=== PATIENT | male | born 1940 | race Caucasian/White ===

== ENCOUNTER 2017-11-17 14:40 | Observation (INO) | payer OTHER, MEDICARE ==
[~2017-11-17] VITALS: Ht 177.8 cm; Wt 93.0 kg
--- NOTE | 2017-11-17 15:57 | RADIOLOGY REPORT ---
EXAMINATION: XR CHEST CLINICAL INFORMATION: Dizziness. Rule out cardiopulmonary process. COMPARISON: None TECHNIQUE: 2 views of the chest were obtained. FINDINGS: The cardiomediastinal silhouette is within normal limits in size. Calcification of the aortic arch is seen. Lungs bilaterally are symmetrically mildly hyperinflated and demonstrate mild bibasilar linear reticular atelectasis. No focal consolidation, effusion or pneumothorax is seen. Bony structures are unremarkable. IMPRESSION: Findings are suggestive of obstructive lung disease with mild bibasilar subsegmental atelectasis. Close clinical correlation is requested. No focal pneumonia.
[2017-11-17 16:32] LABS: ABSOLUTE BASOPHIL COUNT 0 /CUMM (0.0-0.2); ABSOLUTE EOSINOPHIL COUNT 0.2 /CUMM (0.0-0.7); ABSOLUTE GRANULOCYTE CT 4.8 /CUMM (1.4-6.5); ABSOLUTE LYMPH COUNT 1.3 /CUMM (1.2-3.4); ABSOLUTE MONOCYTE COUNT 0.8 /CUMM (0.10-0.60); BASOPHIL % 0.5 % (0.0-2.0); EOSINOPHIL % 3.3 % (0-5); GRANULOCYTE % 67.1 % (42.2-75.2); HEMATOCRIT 41.2 % (42-52); MEAN CORPUSCULAR HGB 28.4 PG (27.0-31.0); MEAN CORPUSCULAR HGB CONC 33.2 G/DL (33.0-37.0); MEAN CORPUSCULAR VOLUME 85.8 FL (80.0-94.0); PLATELET COUNT 304 /CUMM (130-400); WHITE BLOOD CELL COUNT 7.1 /CUMM (4.8-10.8)
--- NOTE | 2017-11-17 20:03 | ED CARDIAC/CP/PALPITATIONS ---
History of Present Illness General Chief Complaint: General Adult Stated Complaint: PT IS SWEATING FOR AWHILE AND DIZZY Source: patient, family Exam Limitations: no limitations Vital Signs & Intake/Output Vital Signs & Intake/Output Vital Signs Date Time Temp Pulse Resp B/P B/P Pulse O2 O2 Flow FiO2 Mean Ox Delivery Rate 11/17 2230 98.7 85 18 134/80 96 Room Air 11/17 2118 97.5 61 18 142/88 98 11/17 1850 98.3 67 20 153/90 96 Room Air 11/17 1457 98.5 88 20 157/90 98 Room Air ED Intake and Output 11/18 0000 11/17 1200 Intake Total 22 Output Total Balance 22 Intake, Oral 22 Patient 205 lb Weight Weight Reported by Patient Measurement Method Allergies Coded Allergies: codeine (UNKNOWN PER PT 11/17/17) Reconcile Medications Ascorbate Calcium (Vitamin C) (Unknown Strength) TABLET (Unknown Dose) PO DAILY SUPPLEMENT (Reported) Aspirin (Ecotrin*) 81 MG TABLET.DR 1 TAB PO DAILY HEART/BLOOD (Reported) Cholecalciferol (Vitamin D3) (Vitamin D) (Unknown Strength) CAPSULE (Unknown Dose) PO DAILY SUPPLEMENT (Reported) [place]-3/Dha/Epa/Fish Oil (Fish Oil 1,000 MG Softgel) (Unknown Strength) CAPSULE (Unknown Dose) PO DAILY SUPPLEMENT (Reported) Pyridoxine HCl (Vitamin B-6) (Unknown Strength) TABLET (Unknown Dose) PO DAILY SUPPLEMENT (Reported) Triage Note: PT TO ED C/O SUDDEN ONSET OF SWEATING, LIGHTHEADED AND WEAKNESS AROUND 1100 TODAY. DENIES PAIN. DENIES C/P. STATES FELT SOB WITH WALKING INTO ED TODAY. RA SATS 98%. STATES "I FEEL TIRED". EKG DONE. Triage Nurses Notes Reviewed? yes HPI: 77-year-old male with no past medical history presenting with sudden onset of profuse sweating today while applying a license plate to his vehicle. Patient states he went into the house, sat down and drank a glass of water at which time he felt better. Patient reports a lack of energy since this episode which occurred at approximately 1230 this afternoon. Of note patient states he had a similar episode 2 weeks ago with diaphoresis while working on putting a grill together at his home. He states he had 2-3 days of decreased energy after that time. Today he notes upon walking from the parking lot to the emergency department he became increasingly short of breath. Patient recently moved back to the area. He has an appointment to establish care with Dr. Smith. Of note in 2005 patient had a stress test which was negative. This was done after the patient was on a cross-country flight and experienced left arm numbness. Per and patient he is extremely active and has a regular exercise routine of 2-3 miles per day. This acute dyspnea on exertion is significant. Patient denies any chest pain, abdominal pain, numbness or tingling to extremities, fever, chills, headache, dizziness, syncope. (Xiao Garcia MD) Past History Travel History Traveled to [place] past 21 day No Medical History Any Pertinent Medical History? none Surgical History Surgical History: none Psychosocial History Who do you live with Spouse Services at Home None What is your primary language Samoan Tobacco Use: Quit >30 days ago Daily Tobacco Use Amount/Type: =< 4 Cigarettes daily (quit 50 years ago; 10yr pck hx) ETOH Use: denies use (2-3 beers/week), occasional use Illicit Drug Use: denies illicit drug use Family History Hx Contributory? No (Xiao Garcia MD) Review of Systems Review of Systems Constitutional: Reports: diaphoresis, malaise. Denies: chills, fever, weakness. EENTM: Reports: no symptoms. Respiratory: Reports: short of breath. Denies: cough, orthopnea, sputum production. Cardiovascular: Reports: no symptoms. Denies: chest pain, palpitations, peripheral edema, syncope. GI: Reports: no symptoms. Genitourinary: Reports: no symptoms. Musculoskeletal: Reports: no symptoms. Skin: Reports: no symptoms. Neurological/Psychological: Reports: no symptoms. (Xiao Garcia MD) Physical Exam Physical Exam General Appearance: well developed/nourished, no apparent distress, alert, awake , comfortable Head: atraumatic, normal appearance Eyes: Bilateral: normal appearance. Neck: normal inspection, supple Respiratory: normal breath sounds, chest non-tender, no respiratory distress Cardiovascular: regular rate/rhythm, normal peripheral pulses Peripheral Pulses: 2+ radial (R), 2+ radial (L) Gastrointestinal: normal bowel sounds, soft, non-tender Extremities: normal inspection, normal capillary refill, normal range of motion Neurologic/Psych: no motor/sensory deficits, awake, alert, oriented x 3, confectionery cooker II- XII nml as tested Skin: intact, normal color, warm/dry Core Measures ACS in differential dx? Yes CVA/TIA Diagnosis No Sepsis Present: No Sepsis Focused Exam Completed? No (Jose GUTIERREZ,Xiao) Progress Differential Diagnosis: unstable angina Plan of Care: Orders Procedure Date/time Status Heart Healthy Diet 11/18 B Active MAGNESIUM 11/18 06 Active LIPID PANEL 11/18 0600 Active CBC WITHOUT DIFFERENTIAL 11/18 06 Active BASIC ELECTROLYTES PLUS BUN&CR 11/18 06 Active ECHOCARDIOGRAM 11/18 0600 Active TROPONIN LEVEL 11/18 0230 Active EKG 11/18 0230 Active MISTAKE 11/18 UNK Active Vital Signs 11/17 2246 Active Teach/Educate 11/17 224 Active Pain Treatment and Response 11/17 224 Active Nutritional Intake, Monitor 11/17 2245 Active Isolation 11/17 224 Active Intake & Output 11/17 2245 Active Patient Care Conference 11/17 2245 Active Activity/Ambulation 11/17 224 Active Pathway - chart 11/18 2143 Active Pathway - chart 11/17 214 Active Patient Data 11/17 2143 Active Code Status 11/17 2143 Active Intake & Output 11/17 2058 Complete Patient Data 11/17 195 Active Saline Lock 11/17 194 Active Misc Message 11/17 194 Active ED Holding Orders 11/17 1946 Active Vital Signs 11/17 1946 Active Code Status 11/[address] in observation 11/17 1945 Active TROPONIN LEVEL 11/17 1908 Complete EKG 11/17 1908 Active THYROID STIMULATING HORMONE 11/17 1501 Complete TROPONIN LEVEL 11/17 1501 Complete COMPREHENSIVE METABOLIC PANEL 11/17 1501 Complete CBC WITHOUT DIFFERENTIAL 11/17 1501 Complete EKG 11/17 1443 Active Pathway - chart 11/17 UNK Active House Staff 11/17 UNK Active Weight 11/17 UNK Active VTE Mechanical Prophylaxis 11/17 UNK Active Telemetry/Merchandise Complaint Adjuster 11/17 UNK Active Intake & Output 11/17 UNK Complete Current Medications Sig/Pavel Start time Last Medication Dose Stop Time Status Admin Aspirin 81 MG DAILY 11/18 09 AC (Aspirin) Enoxaparin Sodium 40 MG DAILY 11/18 09 AC (Lovenox) Multivitamins 1 TAB DAILY 11/18 09 AC (Theragran Vitamins) Acetaminophen 650 MG Q6 PRN 11/17 2144 AC (Tylenol) Acetaminophen 1,000 MG Q6P PRN 11/17 2144 AC (Ofirmev) Oxycodone HCl 5 MG Q6 PRN 11/17 2144 AC (Roxicodone) Laboratory Tests 11/18/17 0300: Troponin I Pending 11/17/172023: Troponin I < 0.01 11/17/17 1623: Anion Gap 10, Estimated GFR > 60, BUN/Creatinine Ratio 17.5, Glucose 89, Calcium 8.9, Total Bilirubin 0.4, AST 34, ALT 40, Alkaline Phosphatase 81, Troponin I < 0.01, Total Protein 7.9, Albumin 4.4, Globulin 3.5, Albumin/Globulin Ratio 1.3, TSH 1.960, CBC w Diff NO MAN DIFF REQ, RBC 4.80, MCV 85.8, MCH 28.4, MCHC 33.2, RDW 14.0, MPV 9.0, Gran % 67.1, Lymphocytes % 18.5 L, Monocytes % 10.6 H, Eosinophils % 3.3, Basophils % 0.5, Absolute Granulocytes 4.8, Absolute Lymphocytes 1.3, Absolute Monocytes 0.8 H, Absolute Eosinophils 0.2, Absolute Basophils 0 Initial ED EKG: sinus arrhythmia Comments: 77 year old male with no PMH presenting with diaphoresis, decreased energy, LUO. Initial work up in ED normal troponin; ekg showing sinus arrhythmia; no signs of acute infectious process; electrolytes WNL; normal TSH. High suspicion for unstable angina. Patient to be placed on observation in Telemetry for further work up and monitoring. Repeat troponin ordered. Will need Cardiology evaluation in AM. (Jose GUTIERREZ,Xiao) CXR Impression: PATIENT: DEBI DONALDSON PRESENT AGE: 77 PATIENT ACCOUNT NO: [id number] : 40 LOCATION: [facility] ORDERING PHYSICIAN: Leena HUSTON SERVICE DATE: 11/17/17 EXAM TYPE: RAD - XRY-CHEST XRAY, TWO VIEWS EXAMINATION: XR CHEST CLINICAL INFORMATION: Dizziness. Rule out cardiopulmonary process. COMPARISON: None TECHNIQUE: 2 views of the chest were obtained. FINDINGS: The cardiomediastinal silhouette is within normal limits in size. Calcification of the aortic arch is seen. Lungs bilaterally are symmetrically mildly hyperinflated and demonstrate mild bibasilar linear reticular atelectasis. No focal consolidation, effusion or pneumothorax is seen. Bony structures are unremarkable. IMPRESSION: Findings are suggestive of obstructive lung disease with mild bibasilar subsegmental atelectasis. Close clinical correlation is requested. No focal pneumonia. DICTATED BY: Sarah Rodriguez MD DATE/TIME DICTATED:11/17/171550 BACKFILLER:LELE DATE/ TIME TRANSCRIBED:11/17/171550 CONFIDENTIAL, DO NOT COPY WITHOUT APPROPRIATE AUTHORIZATION. <Electronically signed in Other Vendor System> SIGNED BY: Sarah Rodriguez MD 11/17/17 1764 (Mendoza Vail MD) Departure Departure Disposition: STILL A PATIENT Condition: Stable Clinical Impression Primary Impression: Unstable angina Referrals: Jere Smith MD (PCP/Family) Departure Forms: Customer Survey General Discharge Information (Xiao Garcia MD) Admission Note Spoke With: Patricio Santo MD Documentation of Exam: Documentation of any treatments & extenuating circumstances including Concerns Regarding Discharge (functional status, medication knowledge or non-compliance, living conditions, etc.) that warrant an admission rather than observation: pt with signs and symptoms concerning for unstable angina... merits tele admission, cards to eval in AM. Resident Co-Sign Statement Statement: ED Attending supervision documentation- [x] I saw and evaluated the patient. I have also reviewed all the pertinent lab results and diagnostic results. I agree with the findings and the plan of care as documented in the Resident's documentation. [] I have reviewed the ED Record and agree with the Resident's documentation. [] Additions or exceptions (if any) to the Resident's note and plan are summarized below: [] (Yared GUTIERREZ,Mendoza Bruno) Critical Care Note Critical Care Note Critical Care Time: non-applicable (Xiao Garcia MD)
[2017-11-17] MEDS ORDERED: FISH OIL 1,001000 MG PO (20:31)
[2017-11-17] MEDS ORDERED: ASPIRIN EC81 M1 PO (20:32)
[2017-11-17] MEDS ORDERED: VITAMIN D2000 UNIT PO (20:32)
[2017-11-17] MEDS ORDERED: VITAMIN C500 M6 PO (20:34)
[2017-11-17] MEDS ORDERED: VITAMIN B-650 M2 PO (20:35)
--- NOTE | 2017-11-17 21:06 | History & Physical ---
Meg Morales 11/17/17 2106: General Information and HPI MD Statement: I have seen and personally examined DEBI DONALDSON and documented this H&P. The patient is a 77 year old M who presented with a patient stated chief complaint of [diaphoresis/dizziness/shortness of breath]. Source of Information: patient Exam Limitations: no limitations History of Present Illness: 77 yo M with no signi. PMHx presented to the ER for evaluation of diaphoresis, SOB and dizziness X 1 day. Pt reports that this morning while doing usual activities of woodwork, he started sweating worse than usual. Also reports dizziness/unsteadiness on his feet, which has been off and on lately. He says he has been tired and not able to do much for the past 2-3 days. He reports having a sufficient oral intake of fluids. Pt reports similar episodes of increased sweating this summer when he was in [place], which he attributes to the weather. He moved to [place] in mid-October & is yet to establish care with PCP-Dr. Singh. Has his first appt coming up next week. Denies: CP, cough, palpitations, N/V, changes in bowel or bladder habits, recent falls, fevers, chills Allergies/Medications Allergies: Coded Allergies: codeine (UNKNOWN PER PT 11/17/17) Compliance With Home Meds: FAIR Past History Travel History Traveled to [facility] past 21 day No Surgical History Surgical History: none Past Family/Social History Psychosocial History Where do you live? Home Who Do You Live With? spouse Services at Home: None Primary Language: Indian Smoking Status: Former Smoker (quit 50 years ago) ETOH Use: occasional use Illicit Drug Use: denies illicit drug use Functional Ability ADLs Independent: dressing, eating, toileting, bathing. Ambulation: independent IADLs Independent: shopping, housework, finances, food prep, telephone, transportation , medication admin. Employment History Employment Retired Review of Systems Review of Systems Constitutional: Reports: see HPI. EENTM: Reports: no symptoms. Cardiovascular: Reports: see HPI. Respiratory: Reports: see HPI. GI: Reports: no symptoms. Genitourinary: Reports: no symptoms. Musculoskeletal: Reports: no symptoms. Skin: Reports: no symptoms. Neurological/Psychological: Reports: see HPI. Hematologic/Endocrine: Reports: no symptoms. Immunologic/Allergic: Reports: no symptoms. All Other Systems: Reviewed and Negative Exam & Diagnostic Data Last 24 Hrs of Vital Signs/I&O Vital Signs Date Time Temp Pulse Resp B/P B/P Pulse O2 O2 Flow FiO2 Mean Ox Delivery Rate 11/17 2230 98.7 85 18 134/80 96 Room Air 11/17 2118 97.5 61 18 142/88 98 11/17 1850 98.3 67 20 153/90 96 Room Air 11/17 1457 98.5 88 20 157/90 98 Room Air Intake & Output 11/18 0800 11/18 0000 11/17 1600 Intake Total 22 Output Total Balance 22 Intake, Oral 22 Patient 205 lb 205 lb Weight Weight Reported by Patient Measurement Method Physical Exam General Appearance Alert, Oriented X3, Cooperative, No Acute Distress Skin No Rashes, No Breakdown, No Significant Lesion Skin Temp/Moisture Exam: Cool/Dry Sepsis Skin Exam (color): Normal for Ethnicity HEENT Atraumatic, PERRLA, EOMI, Mucous Membr. moist/pink Neck Supple, No JVD, No thryomegaly, +2 Carotid Pulse wo Bruit, No LAD Cardiovascular Regular Rate, Normal S1, Normal S2, No Murmurs Lungs Clear to Auscultation, Normal Air Movement Abdomen Normal Bowel Sounds, Soft, No Tenderness, No Hepatospenomegaly, No Masses Neurological Normal Speech, Strength at 5/5 X4 Ext, Normal Tone, Sensation Intact, Cranial Nerves 3-12 NL, Reflexes 2+ Extremities No Clubbing, No Cyanosis, No Edema, Normal Pulses, No Tenderness/ Swelling Assessment/Plan Assessment: 77 yo M with no signi. PMHx presented to the ER for evaluation of diaphoresis, SOB and dizziness X 1 day. VS: Temp 97.5, pulse rate 61, blood pressure 142/80, pulse oximetry 98 at room air Admission labs: Sodium 137, potassium 4.4, BUN 14, creatinine 0.8, total bilirubin 0.4, troponin 0.01 to 0.01, TSH 1.960 Chest x-ray: Suggestive of obstructive lung disease with mild bibasilar subsegmental atelectasis. Problem list 1. Short of breath 2. Dizziness 3. Diaphoresis Assessment and plan to rule out causes of the diaphoresis slight dizziness. He had to rule out ACS, arrhythmia, vestibular problems. As Ranked By This Provider Problem List: 1. SOB (shortness of breath) Observation Initial Note - I have personally examined DEBI DONALDSON on 11/18/17 at 0714. The disposition of DEBI DONALDSON is uncertain at this time and before a determination can be made, he requires a period of observation for the following reasons [ayyrthmia?? Vestibular issue ?? as a cause of dizziness/diaphoresis] Core Measures/Misc (11/20) Acute Coronary Syndrome ACS Diagnosis: Yes Congestive Heart Failure Congestive Heart Failure Diagnosis No Cerebrovascular Accident CVA/TIA Diagnosis: No VTE (View Protocol) VTE Risk Factors Age>40 No Mechanical VTE Prophylaxis d/t N/A MechProphylax Ordered No VTE Pharm Prophylaxis d/t NA PharmProphylax ordered Sepsis (View protocol) Sepsis Present: No If YES complete Sepsis Event Note If YES complete Sepsis Event Note Brisa GUTIERREZ,[facility] 11/17/172128: General Information and HPI Allergies/Medications Home Med list Ascorbate Calcium (Vitamin C) (Unknown Strength) TABLET (Unknown Dose) PO DAILY SUPPLEMENT (Reported) NOT GIVEN Aspirin (Ecotrin*) 81 MG TABLET.DR 1 TAB PO DAILY HEART/BLOOD (Reported) Cholecalciferol (Vitamin D3) (Vitamin D) (Unknown Strength) CAPSULE (Unknown Dose) PO DAILY SUPPLEMENT (Reported) [place]-3/Dha/Epa/Fish Oil (Fish Oil 1,000 MG Softgel) (Unknown Strength) CAPSULE (Unknown Dose) PO DAILY SUPPLEMENT (Reported) Pyridoxine HCl (Vitamin B-6) (Unknown Strength) TABLET (Unknown Dose) PO DAILY SUPPLEMENT (Reported) Core Measures/Misc (11/20) Sepsis (View protocol) If YES complete Sepsis Event Note If YES complete Sepsis Event Note Resident Review Statement Resident Statement: examined this patient, agreed with r d intern Other Findings: 77-year-old gentleman with no past medical history came to [facility] ER with complaints of increased sweating, dizziness and short of breath. Patient was in usual state of health until today morning, he felt short of breath and dizziness and called his primary care physician Dr. Francisco Oquendo who suggested to go ED. Patient recently moved to [place] in the middle of October 2017. He was in [place], during the month of September he had 2 episodes of increased sweating. Patient was never seen by a dental surgery doctor in the past. He denied chest pain, palpitations, nausea, vomiting, abdominal pain, fall, syncopal event, blood in urine, bloody stool, diaphoresis, orthopnea today. Patient sees his primary care physician once a year. Patient has an appointment coming up with Dr. Francisco Oquendo next week. Social history-quit smoking 50 years ago. Occasionally takes beer. Past surgical history-none Family history-noncontributory Vital signs Temperature 97.5, pulse rate 61, blood pressure 142/80, pulse oximetry 98 at room air Admission labs Sodium 137, potassium 4.4, BUN 14, creatinine 0.8, total bilirubin 0.4, troponin 0.01---> 0.01, TSH 1.960 Chest x-ray Suggestive of obstructive lung disease with mild bibasilar subsegmental atelectasis. Home medication Vitamin C Aspirin 81 Vitamin D3 Fish oil Vitamin B6 Physical examination Patient sitting in his bed comfortably. No acute distress. Cardio is [id number] no murmur. 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 Short of breath 2. Dizziness 3. Diaphoresis Assessment and plan diaphoresis/dizziness/short of breath -patient doesn't appear in congestive heart failure. We will do telemetry monitoring/observation to rule out any arrhythmia/vestibular problems causing his dizziness/diaphoresis. We will admit in telemetry for continuous monitoring. Patient might need a stress test. Vitals every shift. Serial troponins and EKG. Echocardiogram to assess his wall motion abnormality Cardiology consult Continue aspirin Orthostatic vitals Diet-heart healthy diet CODE STATUS-full code DVT prophylaxis-Patricio Bradley MD 11/18/17 0628: Core Measures/Misc (11/20) Sepsis (View protocol) If YES complete Sepsis Event Note If YES complete Sepsis Event Note Attending MD Review Statement Attending Statement Attending MD Statement: examined this patient, discuss w/resident/PA/FLOUR WORKER, agreed w/resident/PA/FLOUR WORKER, discussed with family, reviewed EMR data (avail), discussed with nursing, discussed with case mgmt, amended to note Attending Assessment/Plan: This patient is a 77-year-old male without a significant past medical history who came to [facility] ER with complaints of increased diaphoresis, dizziness and short of breath. The patient was in usual state of health until the day of admission when he felt shortness of breath and dizziness and called his primary care physician Dr. Singh who suggested to go ED. He recently moved to [place] in the middle of October 2017 prior to that he lived in [place], where he noted 2 episodes of unusual diaphoresis. Patient was never seen by a dental surgery doctor in the past. While in the emergency department the patient was noted to have a normal temperature with stable vital signs, CBC is normal, chemistries are normal, 2 troponins are negative, chest x-ray Findings are suggestive of obstructive lung disease with mild bibasilar subsegmental atelectasis. No focal pneumonia. The patient will be placed on telemetry observation to rule out acute coronary syndrome with serial troponins and EKGs, echocardiogram, and cardiology consult. Full Code.
[2017-11-17 22:30] VITALS: BP 134/80
--- NOTE | 2017-11-18 04:22 | PN- Housestaff ---
Brisa GUTIERREZ,Alida 11/18/17 0422: Subjective Follow-up For: Dizziness/diaphoresis/shortness of breath Complaints: no complaints Subjective: Patient seen and examined at bedside in no overnight events. Patient slept well overnight. He denies chest pain, palpitation, shortness of breath. Review of Systems Constitutional: Reports: no symptoms. Cardiovascular: Reports: no symptoms. Respiratory: Reports: no symptoms. Gastrointestinal: Reports: no symptoms. Objective Last 24 Hrs of Vital Signs/I&O Vital Signs Date Time Temp Pulse Resp B/P B/P Pulse O2 O2 Flow FiO2 Mean Ox Delivery Rate 11/17 2229 98.7 85 18 134/80 96 Room Air 11/17 2118 97.5 61 18 142/88 98 11/17 1850 98.3 67 20 153/90 96 Room Air 11/17 1457 98.5 88 20 157/90 98 Room Air Intake & Output 11/18 0800 11/18 0000 11/17 1600 Intake Total 22 Output Total Balance 22 Intake, Oral 22 Patient 205 lb 205 lb Weight Weight Reported by Patient Measurement Method Physical Exam General Appearance: Alert, Oriented X3, Cooperative, No Acute Distress Cardiovascular: Regular Rate, Normal S1, Normal S2, No Murmurs Lungs: Clear to Auscultation Abdomen: Normal Bowel Sounds, Soft Neurological: Normal Speech, Strength at 5/5 X4 Ext, Normal Tone Current Medications: Current Medications Sig/Pavel Start time Last Medication Dose Route Stop Time Status Admin Acetaminophen 650 MG Q6 PRN 11/17 2144 AC PO Acetaminophen 1,000 MG Q6P PRN 11/17 2144 AC IV Aspirin 81 MG DAILY 11/18 899 AC PO Aspirin 0 .STK-MED ONE 11/17 2057 DC PO Aspirin 325 MG ONCE ONE 11/18 1999 DC 11/17 PO 11/17 Enoxaparin Sodium 40 MG DAILY 11/18 899 AC SC Multivitamins 1 TAB DAILY 11/18 899 AC PO Oxycodone HCl 5 MG Q6 PRN 11/17 2144 AC PO Last 24 Hrs of Lab/Eddie Results Last 24 Hrs of Labs/Mics: Laboratory Tests 11/18/17 0300: Troponin I Pending 11/17/17 2024: Troponin I < 0.01 11/17/17 1623: Anion Gap 10, Estimated GFR > 60, BUN/Creatinine Ratio 17.5, Glucose 89, Calcium 8.9, Total Bilirubin 0.4, AST 34, ALT 40, Alkaline Phosphatase 81, Troponin I < 0.01, Total Protein 7.9, Albumin 4.4, Globulin 3.5, Albumin/Globulin Ratio 1.3, TSH 1.960, CBC w Diff NO MAN DIFF REQ, RBC 4.80, MCV 85.8, MCH 28.4, MCHC 33.2, RDW 14.0, MPV 9.0, Gran % 67.1, Lymphocytes % 18.5 L, Monocytes % 10.6 H, Eosinophils % 3.3, Basophils % 0.5, Absolute Granulocytes 4.8, Absolute Lymphocytes 1.3, Absolute Monocytes 0.8 H, Absolute Eosinophils 0.2, Absolute Basophils 0 Assessment/Plan Assessment: 77-year-old gentleman with no past medical history came to [facility] with complaints of increased sweating, dizziness and short of breath. Assessment and plan Patient is admitted here to rule out acute coronary syndrome. 1. We will continue telemetry monitoring and look for any malignant arrhythmia. 2. Vitals every shift and trend troponins. The first 2 sets of troponin negative. Consult with cardiology for the need of stress test. 3. Cardiology consult and echocardiogram to assess regional wall motion abnormality. Follow-up with lipid panel. TSH is normal. 4. Orthostatic vitals 5. Continue aspirin 7. Heart healthy diet DVT prophylaxis-Lovenox CODE STATUS-full code Problem List: 1. SOB (shortness of breath) Pain Ratin Pain Location: none Pain Goal: Remain pain free Pain Plan: Tylenol/oxycodone Tomorrow's Labs & Rationales: cbc,guanakito Fleming MD,Sil 11/18/17 0904: Attending MD Review Statement Attending Statement Attending MD Statement: examined this patient, discuss w/resident/PA/STOCK LAYER, agreed w/resident/PA/STOCK LAYER, reviewed EMR data (avail), discussed with nursing, reviewed images Attending Assessment/Plan: Patient feels well today. He is a 77-year-old male ex-smoker no real significant past medical history who is here with this episode of lightheadedness and sweating. Overnight he is ruled out with serial troponins and his EKG does not have any significant ST-T changes. He is not tachycardic or hypoxic and his labs are all okay. Will have cardiology see him, we started him on a baby aspirin and if cleared by cardiology then plan to discharge with close outpatient follow-up.
[2017-11-18 07:13] VITALS: BP 118/74
[2017-11-18 08:20] LABS: ABSOLUTE BASOPHIL COUNT 0 /CUMM (0.0-0.2); ABSOLUTE EOSINOPHIL COUNT 0.3 /CUMM (0.0-0.7); ABSOLUTE GRANULOCYTE CT 4.2 /CUMM (1.4-6.5); ABSOLUTE LYMPH COUNT 1.2 /CUMM (1.2-3.4); ABSOLUTE MONOCYTE COUNT 0.8 /CUMM (0.10-0.60); BASOPHIL % 0.5 % (0.0-2.0); EOSINOPHIL % 4.1 % (0-5); GRANULOCYTE % 64.5 % (42.2-75.2); HEMATOCRIT 39.2 % (42-52); MEAN CORPUSCULAR HGB 28.7 PG (27.0-31.0); MEAN CORPUSCULAR HGB CONC 33.3 G/DL (33.0-37.0); MEAN CORPUSCULAR VOLUME 86.1 FL (80.0-94.0); MEAN PLATELET VOLUME 9.5 FL (7.4-10.4); PLATELET COUNT 291 /CUMM (130-400); RBC DISTRIBUTION WIDTH 13.9 % (11.5-14.5); RED BLOOD CELL CT 4.55 /CUMM (4.70-6.10); WHITE BLOOD CELL COUNT 6.5 /CUMM (4.8-10.8)
--- NOTE | 2017-11-18 10:18 | Patient Discharge Instructions ---
Discharge Instructions General Discharge Information You were seen/treated for: DYSPNEA Special Instructions: Please follow up with your PCP and reiki practitioner after discharge. Diet Continue normal diet: Yes Recommended Diet: Heart Healthy Activity Full Activity/No Limits: No Activity Self Limited: Yes Acute Coronary Syndrome Inclusion Criteria At DC or during hospital stay patient has or had the following: ACS DIAGNOSIS No Discharge Core Measures Meds if any: Prescribed or Continued at Discharge Meds if any: NOT Prescribed or Continued at Discharge Congestive Heart Failure Inclusion Criteria At DC or during hospital stay patient has or had the following: CHF DIAGNOSIS No Discharge Core Measures Meds if any: Prescribed or Continued at Discharge Meds if any: NOT Prescribed or Continued at Discharge Cerebrovascular accident Inclusion Criteria At DC or during hospital stay patient has or had the following: CVA/TIA Diagnosis No Discharge Core Measures Meds if any: Prescribed or Continued at Discharge Meds if any: NOT Prescribed or Continued at Discharge Venous thromboembolism Inclusion Criteria VTE Diagnosis No VTE Type NONE VTE Confirmed by (Test) NONE Discharge Core Measures - Per Current guidelines, there needs to be overlap - treatment for the first 5 days of Warfarin therapy. - If discharged on Warfarin prior to 5 days of - overlap therapy, the patient will need to be - assessed for post discharge needs including - *Post discharge parental anticoagulation - *Warfarin and/or parental anticoagulation education - *Follow up date to check INR post discharge At least 5 days overlap therapy as Inpatient No Meds if any: Prescribed or Continued at Discharge Note: Overlap Therapy is Warfarin and Anticoagulant Meds if any: NOT Prescribed or Continued at Discharge
--- NOTE | 2017-11-19 21:23 | ECHOCARDIOGRAM REPORT ---
DEBI DONALDSON Age: 77 : 1940 Gender: M Exam Date: 11/18/2017 10:58 Exam Location: [address] Ht (in): 70 Wt (lb): 205 BSA: 2.17 BP: 118 / 74 Ordering Physician: Alida Ledezma MD Referring Physician: Josafat Washington MD Chief, SoC Technologist: Jeyson Montana [facility] Room Number: 180-1 Indications: Dizziness and giddiness, Shortness of breath Rhythm: Sinus Technical Quality: good FINDINGS Left Ventricle Normal left ventricular size, wall thickness and systolic function with no obvious regional wall motion abnormalities. Normal left ventricular diastolic filling pattern for age. The ejection fraction is visually estimated at 65%. Right Ventricle The right ventricle is normal in size and function. Right Atrium The right atrium is normal in size. Left Atrium The left atrium is normal in size. The interatrial septum is intact. Mitral Valve The mitral valve is normal in structure and function. There is no mitral regurgitation. Aortic Valve Structurally normal aortic valve without significant sclerosis or stenosis. There is no aortic regurgitation. Tricuspid Valve The tricuspid valve is normal in structure and function. There is trace tricuspid regurgitation. Pulmonary artery systolic pressure could not be estimated. Pulmonic Valve Structurally normal pulmonic valve. There is no pulmonic regurgitation. Pericardium Normal pericardium without effusion. No pleural effusion. Great Vessels Normal aortic root dimension. The aortic arch and great vessels are well seen and are normal. CONCLUSIONS Normal left ventricular size, wall thickness and systolic function with no obvious regional wall motion abnormalities. Normal left ventricular diastolic filling pattern for age. The ejection fraction is visually estimated at 65%. The interatrial septum is intact. The left atrium is normal in size. The mitral valve is normal in structure and function. Structurally normal aortic valve without significant sclerosis or stenosis. The tricuspid valve is normal in structure and function. There is trace tricuspid regurgitation. Normal aortic root dimension. Normal pericardium without effusion. Verenice Abel M.D. (Electronically Signed) Final Date: 19 November 2017 21:22 MEASUREMENTS (Male / Female) Normal Values 2D ECHO LV Diastolic Diameter PLAX 5.6 cm 4.2 - 5.9 / 3.9 - 5.3 cm LV Systolic Diameter PLAX 3.5 cm 2.1 - 4.0 cm LV Fractional Shortening PLAX 37.5 % 25 - 46 % LV Ejection Fraction 2D Teich 66.9 % IVS Diastolic Thickness 0.9 cm LVPW Diastolic Thickness 1.0 cm LV Relative Wall Thickness 0.3 RV Internal Dim ED PLAX 3.1 cm 1.9 - 3.8 cm LVOT Diameter 2.0 cm Aortic Root Diameter 3.6 cm LA Systolic Diameter LX 4.1 cm 3.0 - 4.0 / 2.7 - 3.8 cm LA Volume 86.0 cm 18 - 58 / 22 - 52 cm Ascending Aorta Diameter 3.7 cm DOPPLER AV Peak Velocity 155.0 cm/s AV Peak Gradient 9.6 mmHg AV Mean Velocity 117.0 cm/s AV Mean Gradient 6.0 mmHg AV Velocity Time Integral 30.7 cm LVOT Peak Velocity 112.0 cm/s LVOT Peak Gradient 5.0 mmHg LVOT Mean Velocity 73.7 cm/s LVOT Mean Gradient 2.0 mmHg LVOT Velocity Time Integral 22.8 cm LVOT Stroke Volume 71.6 cm AV Area Cont Eq vti 2.3 cm AV Area Cont Eq pk 2.3 cm MV Peak Velocity 99.8 cm/s MV Peak Gradient 4.0 mmHg MV Mean Velocity 61.9 cm/s MV Mean Gradient 2.0 mmHg Mitral E Point Velocity 77.9 cm/s Mitral A Point Velocity 93.8 cm/s Mitral E to A Ratio 0.8 MV PHT Velocity 75.1 cm/s MV Deceleration Crane 277.0 cm/s MV Pressure Half Time 81.3 ms MV Area PHT 2.7 cm MV Deceleration Time 218.0 ms TV Peak Velocity 214.0 cm/s TV Peak E Velocity 43.2 cm/s TV Peak A Velocity 44.6 cm/s TV E to A Ratio 1.0 Right Atrial Pressure 5.0 mmHg PV Peak Velocity 125.0 cm/s PV Peak Gradient 6.3 mmHg PV Mean Velocity 81.3 cm/s PV Mean Gradient 3.0 mmHg PV Velocity Time Integral 21.8 cm LV E' Lateral Velocity 8.1 cm/s Mitral E to LV E' Lateral Ratio 9.6 LV E' Septal Velocity 6.6 cm/s Mitral E to LV E' Septal Ratio 11.7
== END 2017-11-18 13:45 ==
LOC: ERH 14:40 → 1NO 19:45 → ERHI 19:45 → ENRESERV 20:10 → ENTRNSPT 21:55 → EDTRNSPTSTS 21:56 → EDTRNSPT 21:56 → 1NO 22:02 → CMPTRNSPT 22:11 → 1NO 22:13
PROVIDERS: Physician Assistant Medical; Student in an Organized Health Care Education/Training Program
DX: R06.02 Shortness of breath (principal); Z87.891 Personal history of nicotine dependence; R42 Dizziness and giddiness; R61 Generalized hyperhidrosis; Z79.82 Long term (current) use of aspirin; F17.200 Nicotine dependence, unspecified, uncomplicated
CPT/HCPCS: 6020; 36592; 71046; 82436; 93005; 93010; 93306; 96372; G0378; J1650; J3490